=== PATIENT | female | born 1990 | race Two or more races ===

== ENCOUNTER 2017-07-14 16:32 | Emergency (ER) | payer SELFPAY ==
[~2017-07-14] VITALS: Ht 162.6 cm; Wt 56.7 kg
[2017-07-14] MEDS ORDERED: ROBAXIN-750750 MG PO (17:06)
[2017-07-14] MEDS ORDERED: IBUPROFEN600 MG ORAL (17:06)
[2017-07-14] MEDS ORDERED: Methocarbamol 750mg tab ORAL ONE (17:15)
[2017-07-14 17:28] VITALS: BP 112/73
[2017-07-14 17:29] VITALS: BP 121/77
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
== END 2017-07-14 17:29 | disposition home or self-care (01) ==
LOC: EMR 17:08
DX: M54.5 Low back pain (principal)
CPT/HCPCS: 99284